=== PATIENT | female | born 1990 | race African-American/Black ===

== ENCOUNTER 2016-06-12 01:38 | Emergency (ER) ==
[2016-06-12 01:47] VITALS: BP 93/66
--- NOTE | 2016-06-12 01:51 | PROVIDER DOCUMENTATION ---
HPI-Musculoskeletal Pain/Inj <Myriam Irizarry - Last Filed: 06/12/16 01:55> - GENERAL Source: patient - HX OF PRESENT ILLNESS-MUSKULOSKELTAL Quality of Pain: reports: aching Severity in ED: moderate Onset/Duration: this morning Timing: still present, gone now Any recent injury?: No Locality of Occurance: Work Similar Symptoms Previously?: No - BACK & NECK PAIN/INJURY Back/Neck Pain Location: reports: C-spine Back/Neck Pain Radiation: reports: shoulders Context / Method of Injury: reports: lifting Associated Symptoms: reports: muscle spasms <Valery Ramirez - Last Filed: 06/12/16 02:02> - GENERAL Chief Complaint: Back Pain Stated Complaint: BACK PAIN Time Seen by Provider: 06/12/16 01:50 - HX OF PRESENT ILLNESS-MUSKULOSKELTAL Nature of Presenting Problem: 26 Y/O F presents to ED with Back Pain. Pt states that she recently had children and has gone back to work where she does a lot of lifting and mechanical movement. Pt states that the pain is located between her shoulder blades. (Valery Ramirez) Review of Systems - Adult - REVIEW OF SYSTEMS - ADULT Constitutional: denies: chills, fever Respiratory: denies: cough, shortness of breath Gastrointestinal: denies: abdominal pain, diarrhea, vomiting Musculoskeletal: reports: back pain, muscle aches. denies: muscle weakness, neck pain <Valery Ramirez - Last Filed: 06/12/16 02:02> Past History - Adult - PAST MEDICAL HISTORY-ADULT Major Childhood Illnesses: reports: denies history Cardiovascular: reports: denies history Other Conditions: reports: denies history - PRIOR SURGERIES/PROCEDURES Surgical/Procedure History: reports: reviewed, not pertinent - PRIOR HOSPITALIZATIONS Prior Hospitalizations: reports: none - IMMUNIZATION STATUS Childhood Immunizations: See Nurse Assessment Flu Vaccine: See Nurse Assessment - FAMILY HISTORY Family History: reviewed, not pertinent <Myriam Irizarry - Last Filed: 06/12/16 01:55> - PAST MEDICAL HISTORY-ADULT Review of Records: reports: Old Records Reviewed, Nursing Assessment Review, Medications Reviewed, Social history reviewed & non-contributory. - SOCIAL HISTORY Smoking: cigarettes, less than 1 pack/day Living Situation: family <Valery Ramirez - Last Filed: 06/12/16 02:02> Physical Exam-Injury Related - Physical Exam-Injury Related Initial Vital Signs Reviewed: Yes General Appearance: appears well, alert, no apparent distress Eyes: PERRL/EOMI, pink conjunctivae Head, Ears, Nose, Mouth & Throat: normocephalic/atraumatic, moist mucous membranes Neck: non-tender, full range of motion, supple. negative: C-spine tenderness, decresed ROM, muscle spasm, pain on movement, vertebral point tenderness Respiratory: chest non-tender, lungs clear, normal breath sounds Cardiovascular: regular rate, rhythm, no edema Back Exam: muscle spasm (left rhomboid with spasms). negative: decreased range of motion Extremity: normal gait, normal inspection Integumentary: normal color, warm/dry, blanching Neurologic: grossly normal, no motor/sensory deficits Psych/Mental Status: normal thought content, normal thought process <Myriam Irizarry - Last Filed: 06/12/16 01:55> Progress <Myriam Irizarry - Last Filed: 06/12/16 01:55> <Valery Ramirez - Last Filed: 06/12/16 02:02> - PLAN OF CARE/RESULTS Progress/Plan/Lab Results: Vital Signs Temp Pulse Resp BP Pulse Ox 06/12/16 01:42 97.5 F L 79 20 93/66 98 No Known Allergies Allergy (Verified 02/13/16 09:01) No Home Medications 06/12/16 (Myriam Irizarry.) Departure - Departure Time of Disposition Order: 01:56 Certified Medical Emergency: Emergent <Myriam Irizarry - Last Filed: 06/12/16 01:55> <Valery Ramirez - Last Filed: 06/12/16 02:02> - Departure DIAGNOSIS: Muscle spasm of back Disposition: HOME 01 Condition: Good Additional Instructions: Gently stretch sore muscles several times per day, use good body mechanics to prevent further injury/pain. ED Follow Up Instructions: You have been treated by a care provider in the Emergency Department. These instructions are being provided to you so you can have an understanding of how to care for yourself upon discharge. Upon discharge from the Emergency Department, you are responsible for making arrangements for follow-up care by a physician of your choice. Take all prescribed medications as directed. Return to the Emergency Department immediately for any new or worsening symptoms. You may call the Physician Referral phone number at [phone] to obtain a list of Physicians who are taking new patients. Prescriptions: Ibuprofen 800 mg PO BID #20 tablet Methocarbamol 500 mg PO BID #20 tablet Referrals: Wm Chavez MD [Primary Care Provider] - Lazaro Ziegler MD [STAFF PHYSICIAN] - Attestation - Physician/ SHAHEEN Attestation Patient care was provided by Advanced Practice Provider:: Yes Advanced Practice Provider:: Myriam Irizarry Advanced Practice Provider documentation review:: The Mid-level provider documentation, treatment plan and medical decision making was reviewed by the physician who agrees with all treatment and medical decision making by the MLP. <Myriam Irizarry - Last Filed: 06/12/16 01:55> Physician Attestation
== END 2016-06-12 02:07 | disposition home or self-care (01) ==
LOC: P.ED 01:38
DX: M62.830 Muscle spasm of back (principal); M54.2 Cervicalgia; M25.512 Pain in left shoulder; M25.511 Pain in right shoulder; M54.6 Pain in thoracic spine; M79.1 Myalgia; F17.210 Nicotine dependence, cigarettes, uncomplicated
CPT/HCPCS: 99282